=== PATIENT | male | born 1975 | race Caucasian/White ===

== ENCOUNTER 2019-05-03 09:35 | Day surgery (SDC) | payer MEDICARE ==
[~2019-05-03] VITALS: Ht 177.8 cm; Wt 163.6 kg
[2019-05-03] MEDS ORDERED: HYDROCODON-ACE1 EA10 PO (10:14)
[2019-05-03] MEDS ORDERED: OMEPRAZOLE20 M1 PO (10:15)
[2019-05-03] MEDS ORDERED: LYRICA150 MG PO (10:16)
[2019-05-03] MEDS ORDERED: MECLIZINE HCL25 MG PO (10:16)
[2019-05-03] MEDS ORDERED: NAPRELAN375 MG PO (10:16)
[2019-05-03] MEDS ORDERED: ZANAFLEX4 MG PO (10:17)
[2019-05-03] MEDS ORDERED: GLUCOPHAGE1000 MG PO (10:18)
[2019-05-03 10:20] VITALS: BP 135/74; Ht 177.8 cm; Wt 163.6 kg
[2019-05-03 10:55] LABS: HEMATOCRIT 43.7 % (42.0-54.0); HEMOGLOBIN 15.7 g/dL (13.5-17.5); MCH 30.4 pg (26.0-34.0); MCHC 35.9 g/dL (31.0-37.0); MCV 84.5 fL (80.0-100.0); MEAN PLATELET VOLUME 9.8 fL (7.4-10.4); RBC 5.17 10x6/uL (4.20-6.10); RDW 13.6 % (11.5-14.5); WBC 8.8 10x3/uL (4.8-10.8)
[2019-05-03 11:03] LABS: CALC OSMOLALITY 279 mosm/kg (275-300); CALCIUM 8.6 mg/dL (8.5-10.1); CARBON DIOXIDE 26.1 mmol/L (21.0-32.0); CHLORIDE - SERUM 101 mmol/L (98-107); CREATININE - SERUM 0.8 mg/dL (0.6-1.3); GLUCOSE 217 mg/dL (74-106); POTASSIUM - SERUM 4.1 mmol/L (3.5-5.1); SODIUM 137 mmol/L (136-145); UREA NITROGEN 11 mg/dL (7-18); eGFR NON AFRICAN AMERICAN > 90 mL/min (90-120)
--- NOTE | 2019-05-03 16:34 | NUR ---
1158 IV DC'D. CATHETER INTACT. NO BLEEDING AT SITE. BANDAID APPLIED.
--- NOTE | 2019-05-04 18:01 | OP ---
PATIENT NAME: ARABELLA STAPLETON MEDICAL RECORD: [id number] :75 LOCATION:[facility] ADMISSION DATE: SURGEON: HANS PACHECO DO DATE OF OPERATION: 05/03/2019 PROCEDURE: EGD with biopsies. INDICATIONS FOR PROCEDURE: Right upper quadrant abdominal pain and heartburn. SCOPE: Olympus video gastroscope. MEDICATIONS: Propofol 300 mg IV per anesthesia. ESTIMATED BLOOD LOSS: Minimal. COMPLICATIONS: None. FINDINGS: Informed consent was given. The patient was made comfortable with the above medication. After reaching an adequate level of sedation by slow IV push, the patient was placed in his left side. The endoscope was advanced under direct visualization through the mouth to the second portion of the duodenum with ease. The entire esophagus appeared normal. At the GE junction, there was evidence of mild, LA class A reflux-induced esophagitis. The endoscope was advanced beyond the GE junction into the stomach and retroflexed to view the cardia, which appeared normal. The fundus and body also appeared normal. As the endoscope was advanced down to the antrum and prepyloric region, there was some mild erythema and granularity consistent with gastritis. Random cold forceps biopsies were taken to submit for histopathology and to rule out the presence of H. pylori. The endoscope was advanced beyond the pylorus into the duodenum, which appeared normal down to the second portion. The endoscope was then withdrawn from the patient. The patient tolerated the procedure well and there were no complications. IMPRESSION: 1. LA class A reflux-induced esophagitis. 2. Gastritis. PLAN AND RECOMMENDATIONS: 1. Discharge home when recovery parameters are met. 2. Follow up biopsy specimen results. 3. GERD diet and reflux precautions. 4. Continue omeprazole 20 mg daily as long as this is controlling symptoms. 5. Notify the GI clinic if symptoms worsen or fail to improve. 6. Proceed with colonoscopy as scheduled. TRANSINT:[id number] Voice Confirmation ID: [id number] DOCUMENT ID: [id number] OPERATIVE REPORT [id number] ARABELLA STAPLETON HANS PACHECO DO at 1801 CC: [id number] DICTATION DATE: 05/03/19 1133 [employer]: 05/03/19 1144 [facility] 05/03/19 [place] [address]
== END 2019-05-03 12:27 | disposition home or self-care (01) ==
LOC: D.OPS 09:35
PROVIDERS: Anesthesiology; ATTEND Internal Medicine Gastroenterology
DX: R10.11 Right upper quadrant pain (principal); R12 Heartburn

== ENCOUNTER 2019-05-10 08:27 | Day surgery (SDC) | payer MEDICARE ==
[~2019-05-10] VITALS: Ht 177.8 cm; Wt 152.3 kg
[~2019-05-10 08:27] MED LIST: GLUCOPHAGE1000 MG PO; HYDROCODON-ACE1 EA10 PO; LYRICA150 MG PO; MECLIZINE HCL25 MG PO; NAPRELAN375 MG PO; OMEPRAZOLE20 M1 PO; ZANAFLEX4 MG PO
[2019-05-10 09:00] LABS: HEMATOCRIT 43.9 % (42.0-54.0); HEMOGLOBIN 15.3 g/dL (13.5-17.5); MCH 29.7 pg (26.0-34.0); MCHC 34.9 g/dL (31.0-37.0); MCV 85.2 fL (80.0-100.0); MEAN PLATELET VOLUME 10.2 fL (7.4-10.4); RBC 5.15 10x6/uL (4.20-6.10); RDW 13.9 % (11.5-14.5); WBC 6.7 10x3/uL (4.8-10.8)
[2019-05-10 09:02] LABS: CALC OSMOLALITY 280 mosm/kg (275-300); CALCIUM 8.9 mg/dL (8.5-10.1); CARBON DIOXIDE 29.1 mmol/L (21.0-32.0); CHLORIDE - SERUM 103 mmol/L (98-107); CREATININE - SERUM 0.8 mg/dL (0.6-1.3); GLUCOSE 179 mg/dL (74-106); POTASSIUM - SERUM 4.4 mmol/L (3.5-5.1); SODIUM 139 mmol/L (136-145); UREA NITROGEN 10 mg/dL (7-18); eGFR NON AFRICAN AMERICAN > 90 mL/min (90-120)
[2019-05-10 09:35] VITALS: Ht 177.8 cm; Wt 152.3 kg
--- NOTE | 2019-05-10 11:06 | NUR ---
PT LEAVING OPS AT THIS TIME VIA WC NAD NOTED.
--- NOTE | 2019-05-10 11:06 | NUR ---
PT DC INSTRUCTIONS REVIEWED AT THIS TIME, PT VERBALIZES UNDERSTANDING. PT IV REMOVED AT THIS TIME, NO REDNESS OR SWELLING NOTED AT SITE.
--- NOTE | 2019-05-13 16:17 | OP ---
PATIENT NAME: ARABELLA STAPLETON MEDICAL RECORD: [id number] :75 [facility]: SURGEON: HANS PACHECO DO DATE OF OPERATION: 05/10/2019 PROCEDURE: Colonoscopy with polypectomy. INDICATION FOR PROCEDURE: Hematochezia, right upper quadrant abdominal pain, heartburn. SCOPE: Olympus video pediatric colonoscope. MEDICATIONS: Propofol 550 mg IV per anesthesia. WITHDRAWAL TIME: 13 minutes. ESTIMATED BLOOD LOSS: Minimal. COMPLICATIONS: None. FINDINGS: Informed consent was given. The patient was made comfortable with the above medication. After reaching an adequate level of sedation by slow IV push, the patient was placed on his left side. A digital rectal examination was performed and was normal. The endoscope was then advanced under direct visualization through the rectum to the cecum and the terminal ileum. The endoscope was slowly withdrawn and the mucosa was carefully examined. The prep quality was good. There were 3 polyps visualized on today's examination. They were all benign appearing and sessile. They ranged in size from 2-3 mm in diameter. One was located in the ascending colon. Another was located in the descending colon. The final polyp was located in the sigmoid colon. They were all removed using hot forceps in one piece and completely retrieved. There was evidence of mild diverticulosis involving all segments of the colon. There was no evidence of diverticulitis. Retroflexion was performed in the rectum with visualization of grade I internal hemorrhoids without active bleeding. The endoscope was withdrawn from the patient. The patient tolerated the procedure well and there were no complications. IMPRESSION: 1. Three polyps as described above, removed using hot forceps. 2. Mild diverticulosis of the entire colon. 3. Grade I internal hemorrhoids without active bleeding. PLAN AND RECOMMENDATIONS: 1. Discharge home when recovery parameters are met. 2. Follow up biopsy specimen results. 3. High fiber diet. 4. Continue current medications. 5. Recall colonoscopy will be dependent on pathology results, but I anticipate this being in 3-5 years. TRANSINT:[id number] Voice Confirmation ID: [id number] DOCUMENT ID: [id number] OPERATIVE REPORT [id number] ARABELLA STAPLETON HANS PACHECO DO at 1617 CC: [id number] DICTATION DATE: 05/10/19 1026 [facility] PULLER: 05/10/19 1256 [facility] 05/10/19 [facility] [address] [place] [id number]
== END 2019-05-10 11:06 | disposition home or self-care (01) ==
LOC: D.OPS 08:27
PROVIDERS: Anesthesiology; ATTEND Internal Medicine Gastroenterology
DX: K63.5 Polyp of colon (principal); K57.30 Diverticulosis of large intestine without perforation or abscess without bleeding; K64.0 First degree hemorrhoids; Z01.812 Encounter for preprocedural laboratory examination